=== PATIENT | male | born 1970 | race Caucasian/White ===

== ENCOUNTER 2017-01-11 07:33 | Outpatient (CLI) | payer OTHER ==
[~2017-01-11] VITALS: Ht 188 cm; Wt 133.8 kg
[~2017-01-11 07:33] MED LIST: OMEP40CA2 PO; TRAZ50TA11 PO
[2017-01-11] MEDS ORDERED: LIDOCAINE 2% INJ 100 MG/5 ML SDV (FOR ANES.) As Ordered ONE (07:56)
[2017-01-11] MEDS ORDERED: PROPOFOL 200 MG/20 ML VIAL As Ordered ONE (07:56)
[2017-01-11] MEDS ORDERED: NS 1,000 ML IV ONE (08:45)
--- NOTE | 2017-01-11 09:20 | ROOR ---
Patient Name: Conor Alejandre Procedure Date: 01/11/2017 9:01 AM Date of : 1970 Age: 46 Room: [facility] Gender: Male Note Status: Finalized Procedure: Upper GI endoscopy + Balloon Dilatation + biopsies Indications: Dysphagia, Follow-up of eosinophilic esophagitis, For therapy of eosinophilic esophagitis Providers: Sam Mckeon MD Referring MD: David Moreno Requesting Provider: Medicines: Monitored Anesthesia Care Complications: No immediate complications. Procedure: Pre-Anesthesia Assessment: - The heart rate, respiratory rate, oxygen saturations, blood pressure, adequacy of pulmonary ventilation, and response to care were monitored throughout the procedure. The Endoscope was introduced through the mouth, and advanced to the second part of duodenum. The upper GI endoscopy was accomplished without difficulty. The patient tolerated the procedure well. Findings: The Z-line was regular and was found 40 cm from the incisors. Mucosal changes including ringed esophagus and longitudinal furrows were found in the entire esophagus. Biopsies were taken with a cold forceps for histology. A TTS dilator was passed through the scope. Dilation with an 18-19-20 mm balloon dilator was performed to 18 mm in the entire esophagus. The exam was otherwise without abnormality. Impression: - Z-line regular, 40 cm from the incisors. - Esophageal mucosal changes secondary to eosinophilic esophagitis. Biopsied. - The examination was otherwise normal. - Dilation performed in the entire esophagus. - The examination was otherwise normal. Recommendation: - Patient has a contact number available for emergencies. The signs and symptoms of potential delayed complications were discussed with the patient. Return to normal activities tomorrow. Written discharge instructions were provided to the patient. - Resume previous diet. - Discharge patient to home. - Continue present medications. - Follow an antireflux regimen. - Await pathology results. - Telephone GI clinic for pathology results in 1 week. - Check Portal Online for Path Results.([email or web address] - The findings and recommendations were discussed with the patient's family. Sam Mckeon MD Sam Mckeon MD 01/11/2017 9:20:03 AM This report has been signed electronically. Number of Addenda: 0 Note Initiated On: 01/11/2017 9:01 AM Estimated Blood Loss: Estimated blood loss: none.
[2017-01-11] MEDS ORDERED: ONDANSETRON 4MG/2ML VIAL (J2405) As Ordered ONE (09:32)
[2017-01-11 10:00] VITALS: BP 162/99
== END 2017-01-11 09:59 | disposition home or self-care (01) ==
LOC: M OPP 07:33
PROVIDERS: ATTEND Internal Medicine Gastroenterology
DX: R13.10 Dysphagia, unspecified (principal); K20.0 Eosinophilic esophagitis; E78.5 Hyperlipidemia, unspecified; K26.9 Duodenal ulcer, unspecified as acute or chronic, without hemorrhage or perforation; K27.9 Peptic ulcer, site unspecified, unspecified as acute or chronic, without hemorrhage or perforation; K21.9 Gastro-esophageal reflux disease without esophagitis; R12 Heartburn; M25.60 Stiffness of unspecified joint, not elsewhere classified; G43.909 Migraine, unspecified, not intractable, without status migrainosus; F43.10 Post-traumatic stress disorder, unspecified; Z88.3 Allergy status to other anti-infective agents; Z91.013 Allergy to seafood; Z79.899 Other long term (current) drug therapy
CPT/HCPCS: 43239; 43249; 88305; J2405

== ENCOUNTER 2018-12-18 07:47 | Day surgery (SDC) | payer OTHER ==
[~2018-12-18] VITALS: Ht 188 cm; Wt 140.6 kg
[~2018-12-18 07:47] MED LIST changes: +ADVI100T PO; +DICL1GEL3 TOP; +EPIP0.3I2 IM; +FLUO-157 TOP; +HYDR50TA70 PO; +MELA3TAB49 PO; +NS 1,000 ML IV ONE; -OMEP40CA2 PO; +OMEP40CA97 PO; +REGL5TAB2 PO; +SUMA25TA3 PO; +SUMA6KIT SC; +TRAZ-252 PO; -TRAZ50TA11 PO; +VIAG100T PO
[2018-12-18] MEDS ORDERED: fentaNYL 100 MCG/2 ML INJECTION (J3010) As Ordered ONE (08:55)
[2018-12-18] MEDS ORDERED: propofoL 200 MG/20 ML VIAL As Ordered ONE (08:56)
[2018-12-18] MEDS ORDERED: LIDOCAINE 2% INJ 100 MG/5 ML SDV (FOR ANES.) As Ordered ONE (08:56)
--- NOTE | 2018-12-18 10:11 | ROOR ---
Patient Name: Conor Alejandre Procedure Date: 12/18/2018 9:47 AM Date of : 1970 Age: 48 Room: [facility] Gender: Male Note Status: Finalized Procedure: Upper GI endoscopy + Balloon Dilatation + Biopsies Indications: Dysphagia Providers: Sam Mckeon MD Referring MD: Jennifer Munoz Md Requesting Provider: Medicines: Monitored Anesthesia Care Complications: No immediate complications. Procedure: Pre-Anesthesia Assessment: - The heart rate, respiratory rate, oxygen saturations, blood pressure, adequacy of pulmonary ventilation, and response to care were monitored throughout the procedure. The Endoscope was introduced through the mouth, and advanced to the second part of duodenum. The upper GI endoscopy was accomplished without difficulty. The patient tolerated the procedure well. Findings: The Z-line was regular and was found 40 cm from the incisors. One benign-appearing, intrinsic severe (stenosis; an endoscope cannot pass) stenosis was found 40 cm from the incisors. The stenosis was traversed after dilation. A TTS dilator was passed through the scope. Dilation with an 18-19-20 mm balloon dilator was performed to 20 mm. The dilation site was examined and showed moderate improvement in luminal narrowing. Mucosal changes including ringed esophagus were found in the entire esophagus. Biopsies were taken with a cold forceps for histology. No other significant abnormalities were identified in a careful examination of the stomach. The exam of the duodenum was otherwise normal. Impression: - Z-line regular, 40 cm from the incisors. - Benign-appearing esophageal stenosis. Dilated. - Esophageal mucosal changes suggestive of eosinophilic esophagitis. Biopsied. - The examination was otherwise normal. Recommendation: - Await pathology results. - Discharge patient to home. - Follow an antireflux regimen. - Continue present medications. - Await pathology results. - Telephone GI clinic for pathology results in 1 week. - The findings and recommendations were discussed with the patient's family. Sam Mckeon MD Sam Mckeon MD 12/18/2018 10:11:19 AM Electronically signed by Sam Mckeon MD Number of Addenda: 0 Note Initiated On: 12/18/2018 9:47 AM Estimated Blood Loss: Estimated blood loss: none.
[2018-12-18 10:45] VITALS: BP 124/86
== END 2018-12-18 10:45 | disposition home or self-care (01) ==
LOC: M OPP 07:47
PROVIDERS: ATTEND Internal Medicine Gastroenterology
DX: K22.2 Esophageal obstruction (principal); K22.8 Other specified diseases of esophagus; R13.10 Dysphagia, unspecified; Z79.899 Other long term (current) drug therapy; Z88.3 Allergy status to other anti-infective agents; Z91.013 Allergy to seafood
CPT/HCPCS: 43239; 43249; 88305; J3010

== ENCOUNTER → 2020-10-21 | Outpatient (CLI) | payer OTHER ==
[~2020-10-21] MED LIST changes: +CETI10CH PO; +JARD1TAB PO; -NS 1,000 ML IV ONE; +SYNT25TA PO
== END ==
LOC: M LABSMTC 11:15
PROVIDERS: ATTEND Anesthesiology
DX: Z01.818 Encounter for other preprocedural examination (principal); Z11.52 Encounter for screening for COVID-19

== ENCOUNTER 2020-10-26 07:12 | Day surgery (SDC) | payer OTHER ==
[~2020-10-26] VITALS: Ht 188 cm; Wt 148.3 kg
[~2020-10-26 07:12] MED LIST changes: +NS 1,000 ML IV ONE
[2020-10-26] MEDS ORDERED: propofoL 500 MG/50 ML VIAL As Ordered ONE (07:54)
[2020-10-26] MEDS ORDERED: LIDOCAINE 2% 100MG/5ML SDV (FOR ANES.) As Ordered ONE (07:54)
[2020-10-26] MEDS ORDERED: propofoL 200 MG/20 ML VIAL As Ordered ONE (08:13)
--- NOTE | 2020-10-26 09:06 | ROOR ---
Patient Name: Conor Alejandre Procedure Date: 10/26/2020 8:46 AM Date of : 1970 Age: 50 Room: [facility] Gender: Male Note Status: Finalized Procedure: Upper GI endoscopy + Balloon Dilatation Indications: Dysphagia Providers: Sam Mckeon MD Referring MD: Jennifer Munoz Md Requesting Provider: Medicines: Monitored Anesthesia Care Complications: No immediate complications. Procedure: Pre-Anesthesia Assessment: - The heart rate, respiratory rate, oxygen saturations, blood pressure, adequacy of pulmonary ventilation, and response to care were monitored throughout the procedure. The Endoscope was introduced through the mouth, and advanced to the second part of duodenum. The upper GI endoscopy was accomplished without difficulty. The patient tolerated the procedure well. Findings: The Z-line was regular and was found 40 cm from the incisors. Mucosal changes including ringed esophagus were found in the entire esophagus. A TTS dilator was passed through the scope. Dilation with an 18-19-20 mm balloon dilator was performed to 18 mm. The dilation site was examined and showed mild improvement in luminal narrowing. No other significant abnormalities were identified in a careful examination of the stomach. The exam of the duodenum was otherwise normal. Impression: - Z-line regular, 40 cm from the incisors. - Esophageal mucosal changes secondary to eosinophilic esophagitis. Dilated. - No specimens collected. - The examination was otherwise normal. Recommendation: - Patient has a contact number available for emergencies. The signs and symptoms of potential delayed complications were discussed with the patient. Return to normal activities tomorrow. Written discharge instructions were provided to the patient. - Resume previous diet. - Discharge patient to home. - Follow an antireflux regimen. - Continue present medications. - Return to referring physician. - Repeat upper endoscopy PRN for retreatment. - The findings and recommendations were discussed with the patient's family. Procedure Code(s): --- Professional --- 70461, Esophagogastroduodenoscopy, flexible, transoral; with transendoscopic balloon dilation of esophagus (less than 30 mm diameter) Diagnosis Code(s): --- Professional --- K20.0, Eosinophilic esophagitis R13.10, Dysphagia, unspecified CPT copyright 2019 [employer]. All rights reserved. The codes documented in this report are preliminary and upon neurological physiotherapist review may be revised to meet current compliance requirements. Sam Mckeon MD Sam Mckeon MD 10/26/2020 9:06:12 AM Electronically signed by Sam Mckeon MD Number of Addenda: 0 Note Initiated On: 10/26/2020 8:46 AM Estimated Blood Loss: Estimated blood loss: none.
[2020-10-26] MEDS ORDERED: fentaNYL 100 MCG/2 ML INJECTION (J3010) As Ordered ONE (09:12)
[2020-10-26 09:30] VITALS: BP 123/79
== END 2020-10-26 09:34 | disposition home or self-care (01) ==
LOC: M OPP 07:12
PROVIDERS: ATTEND Internal Medicine Gastroenterology
DX: K20.0 Eosinophilic esophagitis (principal); R13.10 Dysphagia, unspecified; R19.4 Change in bowel habit; K58.2 Mixed irritable bowel syndrome; Z79.84 Long term (current) use of oral hypoglycemic drugs; Z79.899 Other long term (current) drug therapy; Z88.8 Allergy status to other drugs, medicaments and biological substances; Z91.013 Allergy to seafood
CPT/HCPCS: 43249; J3010

== ENCOUNTER → 2022-02-20 | Outpatient (CLI) | payer OTHER ==
[~2022-02-20] MED LIST changes: -NS 1,000 ML IV ONE; +OMEP40CA4 PO; -OMEP40CA97 PO; +SEMA1PEN2; +SUMA6CAR SC; -SUMA6KIT SC
== END ==
LOC: M LABSMTC 08:57
PROVIDERS: ATTEND Anesthesiology
DX: Z01.818 Encounter for other preprocedural examination (principal); Z11.52 Encounter for screening for COVID-19

== ENCOUNTER 2022-02-23 11:52 | Day surgery (SDC) | payer OTHER ==
[~2022-02-23] VITALS: Ht 188 cm; Wt 133.7 kg
[~2022-02-23 11:52] MED LIST changes: +NS 1,000 ML IV ONE
[2022-02-23] MEDS ORDERED: propofoL 200 MG/20 ML VIAL As Ordered ONE ×2 (13:54→14:38)
[2022-02-23] MEDS ORDERED: LIDOCAINE 2% 100MG/5ML SDV (FOR ANES.) As Ordered ONE (13:54)
[2022-02-23] MEDS ORDERED: ONDANSETRON 4MG 2ML VIAL IV ONE (15:05)
[2022-02-23 15:10] VITALS: BP 117/76
== END 2022-02-23 15:20 | disposition home or self-care (01) ==
LOC: M OPP 11:52
PROVIDERS: ATTEND Internal Medicine Gastroenterology
DX: K20.0 Eosinophilic esophagitis (principal); Z79.899 Other long term (current) drug therapy; Z88.8 Allergy status to other drugs, medicaments and biological substances; Z91.013 Allergy to seafood; E11.9 Type 2 diabetes mellitus without complications; E03.9 Hypothyroidism, unspecified; L40.9 Psoriasis, unspecified; G47.30 Sleep apnea, unspecified; Z99.89 Dependence on other enabling machines and devices; G43.909 Migraine, unspecified, not intractable, without status migrainosus
CPT/HCPCS: 43249; J2405